=== PATIENT | female | born 1990 | race Caucasian/White ===

== ENCOUNTER 2023-10-04 06:57 | Emergency (ER) | payer BC, SELFPAY ==
--- NOTE | ~2023-10-04 | CT_ITS ---
EXAMINATION: CT abdomen pelvis w con DATE: 10/04/2023 09:15 INDICATION: Blood in stool. Left upper quadrant abdominal pain. TECHNIQUE: Computed tomography (CT) of the abdomen and pelvis was performed with 100 mL Omnipaque 350 intravenous contrast. Automated exposure control and iterative reconstruction technique were employe d. The dose-length product was 192.25 mGy-cm. COMPARISON: None. FINDINGS: The visualized portions of the lung bases demonstrate mild atelectasis. No pleural effusion . The heart size is normal. No pericardial effusion. There are bilateral breast implants. The liver a nd spleen are normal. There are changes of cholecystectomy. The pancreas, adrenal glands, and kidneys are normal. There are no dilated loops of bowel. The appendix is normal. There are no pathologically enlarged lymph nodes. There is no free intraperitoneal fluid. There is mild thoracic and lumbar spon dylosis. IMPRESSION: 1. No etiology for the patient's symptoms. Reviewed, dictated and finalized at location A.
[2023-10-04 07:07] VITALS: BP 118/68; PULSE 100; RESP 16; TEMP 37.2; O2SAT 100
--- NOTE | 2023-10-04 07:16 | ED.GIBLEED ---
HPI - GI Bleed General Chief complaint: GI Bleed Stated complaint: rectal bleeding Time Seen by Provider: 10/04/23 07:14 Source: patient and family (partner) Mode of arrival: ambulatory Limitations: no limitations History of Present Illness HPI Narrative: 33 year female (pronounced Gina ) presents with complaint rectal bleeding for the past 2 days. She had 3-4 episodes this yesterday but also notes that she had this occur her on 09/15/2023. She has intermittently has left upper quadrant abdominal cramping. Last menstrual period 09/16/2023. She endorses feeling nauseated but no emesis. Last oral intake 10:30 p.m.. Has not take anything for pain. Denies any melena or hematochezia but rather will have drops of blood in the toilet bowl when using the bathroom. She thought perhaps it was vaginal bleeding but states she used a mirror to confirm. Abd pain 2/10 currently. She denies being constipated. No pain at her rectum. Has not had blood in her underwear. Denies any urinary urgency, frequency, dysuria, or hematuria. She did have a fever of 101? F this morning. She is also having some left lateral abdominal pain and left flank pain. Feels fatigued. No PMH stone. Related Data Allergies Allergy/AdvReac Type Severity Reaction Status Date / Time Penicillins Allergy Hives Verified 10/04/23 07:14 skin glue Allergy Unknown Uncoded 10/04/23 07:[facility] Surgical History Surgical History (Updated 10/04/23 @ 07:40 by Leyda Marmolejo MD) History of cholecystectomy Social History Social History (Updated 10/04/23 @ 07:40 by Leyda Marmolejo MD) Living arrangements: with family Additional living arrangements comments: partner, daughter Exam Narrative: GENERAL: Well-appearing, well-nourished, and in no acute distress. HEAD: Normocephalic, atraumatic. EYES: Non injected, non icteric ENT: Nares clear, no rhinorrhea or epistaxis. NECK: Supple. CHEST: Speaking in full sentences. No respiratory distress. HEART: Regular rate and rhythm. . ABDOMEN/GI: Soft, nondistended. Nontender to palpation throughout. No rigidity or guarding. Rectal exam performed. No external hemorrhoids. No evidence of bleeding externally. Normal sphincter tone. No palpable masses and no pain or discomfort with insertion of left finger. Does appear to be an internal hemorrhoid. No gross blood on withdrawal of the gloved finger but there is scant normal appearing stool. FOBT/guaic test negative. : No CVA tenderness bilaterally EXTREMITIES: Normal range of motion. No edema. SKIN: Warm, dry, no rash. NEURO: No focal deficits. Alert and oriented x3. PSYCH: Normal mood and affect. Course Vital Signs Vital signs: Vital Signs Temperature 98.9 F 10/04/23 07:07 Pulse Rate 100 10/04/23 07:07 Respiratory Rate 16 10/04/23 07:07 Blood Pressure 118/68 10/04/23 07:07 Pulse Oximetry 100 10/04/23 07:07 Oxygen Delivery Room Air 10/04/23 07:07 Temperature 98.9 F 10/04/23 07:07 Pulse Rate 98 10/04/23 10:02 Respiratory Rate 17 10/04/23 10:02 Blood Pressure 115/60 10/04/23 10:02 Pulse Oximetry 100 10/04/23 10:02 Oxygen Delivery Room Air 10/04/23 07:07 MDM - GI Bleed MDM Narrative Medical decision making narrative: The patient is a 33 year old who comes to the emergency department with rectal bleeding for 2 days as well as an episode earlier in September. They noted bright red blood in the toilet which has recurred 3 times. Intermitently associated with abdominal pain and not hematochezia/melena. In the ED they are initially afebrile and hemodynamically stable without tachycardia or hypotension. Based on history and physical, suspect lower GI bleed so will go ahead and order CBC, CMP, coagulation studies, lactate, and type and screen. My differential diagnosis at this time is diverticulosis versus angiodysplasia versus Meckel's diverticulum. Colon cancer is also possible. Unlikely to be is
[2023-10-04 07:24] LABS: Basophils Percent Auto 0.7 % (0.2-1.2); Eosinophils Percent Auto 0.2 % (0-4.4); Hematocrit 44.3 % (37.0-47.0); Hemoglobin 14.7 g/dL (12.0-15.0); Immature Granulocyte Absolute 0.01 K/mm3 (0.00-0.031); Immature Granulocyte Percent A 0.2 % (0-0.5); Lymphocytes Absolute Auto 0.43 K/mm3 (0.9-3.2); Lymphocytes Percent Auto 9.7 % (18.3-44.2); Mean Corpuscular HGB Conc 33.2 g/dl (32-36); Mean Corpuscular Hemoglobin 29.9 pg (26-34); Mean Platelet Volume 9.9 fl (7.4-10.4); Monocytes Absolute Auto 0.5 K/mm3 (0.1-0.6); Monocytes Percent Auto 11.5 % (2.6-8.5); Neutrophils Absolute Auto 3.5 K/mm3 (1.3-6.7); Neutrophils Percent Auto 77.7 % (45.5-73.1); Platelet Count Result 178 k/mm3 (150-375); Red Blood Count 4.92 M/mm3 (4.2-5.4); Red Cell Distribution Width 12.3 % (11.5-14.5); White Blood Count 4.4 K/mm3 (4.5-10.0)
[2023-10-04 07:34] LABS: INR 0.9; Prothrombin Time 11.9 Seconds (11.1-14.7)
[2023-10-04 07:35] LABS: Partial Thromboplastin Time 25.1 Seconds (22.3-36.8)
[2023-10-04 07:37] LABS: Alanine Aminotransferase 140 U/L (6-35); Albumin Level 4.5 g/dL (3.5-5.1); Alkaline Phosphatase 80 U/L (38-126); Anion Gap 6 mmol/L (4-12); Aspartate Amino Transferase 62 U/L (14-36); Bilirubin,Total 0.6 mg/dL (0.2-1.3); Blood Urea Nitrogen 11 mg/dL (7-17); Calcium 9.3 mg/dL (8.4-10.2); Carbon Dioxide 27 mmol/L (22-30); Chloride 106 mmol/L (98-107); Estimated CRCL calculation 61 ml/min; Estimated Glomerular Filt Rate > 60; Glucose 105 mg/dL (65-110); Sodium 139 mmol/L (137-145)
[2023-10-04] MEDS: ONDANSETRON INJ 4 MG/2 ML VIAL IV PUSH (07:42)
[2023-10-04 07:48] LABS: Magnesium 2.3 mg/dL (1.6-2.3)
[2023-10-04 07:58] LABS: Appearance Urine Clear (Clear); Bilirubin Urine Negative (Negative); Blood Urine Negative (Negative); Color Urine Yellow (Yellow); Glucose Urine UA Negative (Negative); Ketones Urine Negative (Negative); Leukocyte Esterase Ur Negative LEU/UL (Negative); Nitrate Urine Negative (Negative); Protein Urine Negative (Negative); Specific Grav Ur 1.021 (1.001-1.035); Urobilinogen Urine 0.2 mg/dL (<2.0)
[2023-10-04 08:04] LABS: Lactate Dehydrogenase 157 U/L (120-246); Lipase 89 U/L (23-300)
[2023-10-04 08:05] LABS: Add Urine Microscopic? NO
[2023-10-04 08:29] LABS: Monoscreen Negative (Negative); Negative Monotest Control Negative (Negative); Positive Monotest Control Positive (Positive)
[2023-10-04 08:33] LABS: Influenza A QL RT-PCR Negative (Negative); Influenza B QL RT-PCR Negative (Negative); SARS-CoV-2 RNA PCR Negative (Negative)
[2023-10-04 10:02] VITALS: BP 115/60; PULSE 98; RESP 17; O2SAT 100
== END 2023-10-04 10:21 | disposition home or self-care (01) ==
PROVIDERS: Emergency Provider Student in an Organized Health Care Education/Training Program
DX: K64.8 Other hemorrhoids (principal); D72.810 Lymphocytopenia; D72.821 Monocytosis (symptomatic); D72.819 Decreased white blood cell count, unspecified; R74.01 Elevation of levels of liver transaminase levels; Z90.49 Acquired absence of other specified parts of digestive tract
CPT/HCPCS: 36415; 74177; 80053; 81003; 81025; 83615; 83690; 83735; 85025; 85610; 85730; 86308; 86850; 86900; 86901; 87636; 96374; 99284; J2405; Q9967